=== PATIENT | female | born 1985 | race Caucasian/White ===

== ENCOUNTER → 2017-12-04 | Day surgery (SDC) | payer MEDICAID ==
[2017-12-02 15:05] VITALS: BMI 22.7
[~2017-12-04] MED LIST: LACTATED RINGERS 1,000 ML IV ONE; LACTATED RINGERS 1,000 ML IV SCH; LIDOCAINE 1% 20 ML VIAL (10MG/ML) FOR IV START INTRADERMA ONE; LIDOCAINE 1% INJ 10MG/ML (20 ML MDV) ONE; MIDAZOLAM 2 MG/2 ML VIAL ONE; PROPOFOL 10 MG/ML 20 ML VIAL IV ONE; fentaNYL (PF) 50 MCG/ML 2 ML AMP ONE
[2017-12-04 08:44] VITALS: TEMP 97.9
--- NOTE | 2017-12-04 10:07 | P.PCN ---
Date of Procedure: 12/04/17 Procedure(s) Performed: Procedures: 1. Esophagogastroduodenoscopy and biopsy. 2. Colonoscopy and biopsy. Preoperative diagnosis: Epigastric pain and change in bowel habits. Postoperative diagnosis: 1. Mild antral gastritis. 2. Normal colon and terminal ileum. 3. Biopsies obtained from the duodenum, antrum, esophagus, terminal ileum and randomly from the colon. Preparation: HalfLytely prep. Sedation: Was provided by anesthesia. Brief clinical history: The patient is a 32-year-old female who I have evaluated in the office last month for upper abdominal pains and intermittent diarrhea which has been consistent for the last 2 months. There is family history of colitis in her mother and of irritable bowel syndrome and Crohn's disease on her mother's side of the family. Procedure: With the patient on her left lateral decubitus position and after informed consent and adequate sedation, I passed the Olympus-GIF 160 video upper endoscope through the cricopharyngeus down the esophagus. GE junction was around 39 cm from the incisors and there was no definite hiatal hernia. The esophagus did not show any obvious esophagitis or complicated reflux disease. The endoscope was then passed into the stomach which was insufflated with air and inspected in detail including the retroflex view in the cardia. There was some mottling and erythema in the antrum consistent with mild gastritis but no ulcers or erosions. Pyloric channel, duodenal bulb, post bulbar area and descending duodenum appeared within normal limits. I obtained biopsies from the duodenum, antrum and esophagus then the endoscope was withdrawn and I proceeded with the colonoscopy. Perianal area did not show any fissures or fistulas. There were no masses felt on digital rectal examination. The Olympus CFQ 160L video colonoscope was then inserted in the rectum in the usual fashion and advanced to the cecum. I intubated the ileocecal valve and examined the terminal ileum. Terminal ileum and colon appeared healthy with no edema, erythema, friability, ulceration, exudation or spontaneous bleeding. No polyps or tumors were seen or any obvious diverticular disease or other pathology. I retroflexed the endoscope in the rectum before the endoscope was withdrawn, and I also obtained biopsies from the terminal ileum and randomly from the colon. The patient tolerated the procedure well. Plan: The patient was reassured. Will await biopsy results and make further plans based on her course and biopsy results. She will follow-up with you as planned and I will keep you updated on her progress.
[2017-12-04 10:20] VITALS: BP 134/63; PULSE 70; RESP 18
== END ==
LOC: ORWHC2ENDO 08:01
DX: K29.50 Unspecified chronic gastritis without bleeding (principal); K20.0 Eosinophilic esophagitis; K52.9 Noninfective gastroenteritis and colitis, unspecified; Z83.79 Family history of other diseases of the digestive system; J45.909 Unspecified asthma, uncomplicated; Z72.0 Tobacco use; K21.9 Gastro-esophageal reflux disease without esophagitis; Z79.51 Long term (current) use of inhaled steroids; Z79.899 Other long term (current) drug therapy; Z91.02 Food additives allergy status; Z91.018 Allergy to other foods
CPT/HCPCS: 81025; 88305; 45380; 43239; J2250; J2001; J3010; J2704

== ENCOUNTER → 2018-03-09 | Outpatient (CLI) | payer MEDICAID ==
--- NOTE | 2018-03-09 12:24 | XR ---
EXAMINATION TYPE: XR shoulder complete RT DATE OF EXAM: 03/09/2018 COMPARISON: NONE HISTORY: Pain TECHNIQUE: Three views are submitted. FINDINGS: The osseous structures are intact. There is no acute fracture or dislocation. The AC joint is maint ained. IMPRESSION: 1. No acute process.
== END | disposition home or self-care (01) ==
LOC: RADXRMAIN 11:35
PROVIDERS: ATTEND Nurse Practitioner Family
DX: M25.511 Pain in right shoulder (principal)

== ENCOUNTER 2020-06-04 13:29 | Emergency (ER) | payer MEDICAID, OTHER ==
--- NOTE | 2020-06-04 14:11 | ED ---
Wound/Laceration HPI - General Chief Complaint: Wound/Laceration Stated Complaint: [facility]- R hand injury Time Seen by Provider: 06/04/20 14:00 Source: patient, RN notes reviewed Mode of arrival: ambulatory Limitations: no limitations - History of Present Illness Initial Comments: Patient is a 35-year-old female presents to emergency department with a right tip of thumb laceration. She noted that she got her thumb caught between a palate and some decking material. She'll he wanted to come the emergency Department if she needed stitches. The wound margins approximate well as more of a skin flap. She does have full sensation range of motion. She denied any weakness numbness tingling. She denied any nausea vomiting diarrhea constipation fever fatigue chills. - Related Data Home Medications Medication Instructions Recorded Confirmed Fluticasone/Salmeterol [Advair 1 each IH HS 04/14/15 12/04/17 250-50 Diskus] Albuterol Sulfate [Proair 1 puff INHALATION DIRECTED PRN 12/02/17 12/04/17 Respiclick] Allergies Allergy/AdvReac Type Severity Reaction Status Date / Time gluten Allergy Nausea & Verified 06/04/20 13:35 Vomiting soy Allergy Unknown Verified 06/04/20 13:35 tree nut Allergy Anaphylaxis Verified 06/04/20 13:35 Review of Systems ROS Statement: Those systems with pertinent positive or pertinent negative responses have been documented in the HPI. ROS Other: All systems not noted in ROS Statement are negative. Past Medical History Past Medical History: Asthma, GERD/Reflux Additional Past Medical History / Comment(s): HEART MURMUR, CURRENTLY HAS POISON EBONI BUT IT IS DRYING UP., HX OF GI BLEEDING 10 YRS AGO-UNKNOWN CAUSE., STATES CURRENTLY HAVING STOMACH PAINS. History of Any Multi-Drug Resistant Organisms: None Reported Past Surgical History: No Surgical Hx Reported Additional Past Surgical History / Comment(s): WISDOM TEETH ONLY. Past Anesthesia/Blood Transfusion Reactions: Motion Sickness Past Psychological History: Anxiety Smoking Status: Current every day smoker Past Alcohol Use History: Occasional Past Drug Use History: None Reported - Past Family History Mother Family Medical History: No Reported History General Exam Limitations: no limitations General appearance: alert, in no apparent distress Head exam: Present: atraumatic, normocephalic, normal inspection Eye exam: Present: normal appearance, PERRL, EOMI. Absent: scleral icterus, conjunctival injection, periorbital swelling ENT exam: Present: normal exam, mucous membranes moist Neck exam: Present: normal inspection. Absent: tenderness, meningismus, lymphadenopathy Respiratory exam: Present: normal lung sounds bilaterally. Absent: respiratory distress, wheezes, rales, rhonchi, stridor Cardiovascular Exam: Present: regular rate, normal rhythm, normal heart sounds. Absent: systolic murmur, diastolic murmur, rubs, gallop, clicks GI/Abdominal exam: Present: soft, normal bowel sounds. Absent: distended, tenderness, guarding, rebound, rigid Extremities exam: Present: normal inspection, full ROM, normal capillary refill. Absent: tenderness, pedal edema, joint swelling, calf tenderness Neurological exam: Present: alert, oriented X3, CN II-XII intact Psychiatric exam: Present: normal affect, normal mood Skin exam: Present: warm, dry, intact, normal color, other (Small 1-1.5 cm laceration to the tip of the right thumb on the medial aspect near the nail.). Absent: rash Course Vital Signs 06/04/20 13:31 Temperature 97.6 F Pulse Rate 98 Respiratory 18 Rate Blood Pressure 144/93 O2 Sat by Pulse 99 Oximetry Procedures - Laceration Laceration #1 Consent Obtained: verbal consent Indication: laceration Site: hand (Right thumb) Description: flap Depth: simple, single layer Type of Sutures: other (Dermabond) Size of Sutures: other (Dermabond) Technique: other (Dermabond) Patient Tolerated Procedure: well, no complications Medical Decision Making - Medical Decision Making 35-year-old female with small laceration to right thumb X-ray of right hand fingers ordered. patient declined need for any pain medication Case discussed with Dr. Lindo, patient can discharge home with conservative management. - Radiology Data Radiology results: report reviewed, image reviewed Right thumb x-ray: Negative rate on exam. Disposition Clinical Impression: Laceration of right thumb Disposition: HOME SELF-CARE Condition: Stable Instructions (If sedation given, give patient instructions): Laceration (ED) Additional Instructions: Please return to the Emergency Department if symptoms worsen or any other concerns. Keep thumb dry for 48-72 hours. Follow-up with primary care in 2-5 days. Use [id number] pain medications as percent on a control. Is patient prescribed a controlled substance at d/c from ED?: No Referrals: Indra Apple MD [Primary Care Provider] - 1-2 days Time of Disposition: 15:01
[2020-06-04] MEDS ORDERED: TOPICAL SKIN ADHESIVE 1 EACH AMP TOPICAL ONE (14:31)
--- NOTE | 2020-06-04 14:43 | XR ---
EXAMINATION TYPE: XR finger RT DATE OF EXAM: 06/04/2020 COMPARISON: NONE HISTORY: Thumb injury Pain TECHNIQUE: 3 views FINDINGS: I see no fracture nor dislocation. Joint spaces appear normal. Soft tissues appear normal. IMPRESSION: Negative right thumb exam.
[2020-06-04] MEDS ORDERED: DIPH,PERTUS(ACELL)TETVAC-LF 0.5 ML VIAL IM ONE (15:09)
--- NOTE | 2020-06-04 15:11 | ED ---
Medical Decision Making - Medical Decision Making 35-year-old female with thumb laceration. Tetanus immunization updated. Case discussed with Dr. Lindo Disposition Clinical Impression: Laceration of right thumb Disposition: HOME SELF-CARE Condition: Stable Instructions (If sedation given, give patient instructions): Laceration (ED) Additional Instructions: Please return to the Emergency Department if symptoms worsen or any other concerns. Keep thumb dry for 48-72 hours. Follow-up with primary care in 2-5 days. Use [id number] pain medications as percent on a control. Is patient prescribed a controlled substance at d/c from ED?: No Referrals: Indra Apple MD [Primary Care Provider] - 1-2 days
[2020-06-04 15:23] VITALS: BP 128/78; PULSE 78; RESP 16; TEMP 98
== END 2020-06-04 15:22 | disposition home or self-care (01) ==
LOC: EC 13:29
DX: S61.011A Laceration without foreign body of right thumb without damage to nail, initial encounter (principal); J45.909 Unspecified asthma, uncomplicated; Z79.52 Long term (current) use of systemic steroids; F17.200 Nicotine dependence, unspecified, uncomplicated; Z23 Encounter for immunization; Z91.018 Allergy to other foods; W23.0XXA Caught, crushed, jammed, or pinched between moving objects, initial encounter
CPT/HCPCS: 12001; 90471; 90715; 99283

== ENCOUNTER → 2020-12-06 | Outpatient (CLI) | payer MEDICAID ==
--- NOTE | 2020-12-06 15:42 | US ---
EXAMINATION TYPE: US OB >= 14 wk fetus DATE OF EXAM: 12/06/2020 COMPARISON: None CLINICAL HISTORY: Z36 Confirm dates Confirm dates. G1. TECHNIQUE: Transabdominal (TA) GESTATIONAL AGE / DATING Physician Established: Not yet established. Dates by LMP: Unknown per patient. Dates by First Scan: This is first scan. Dates by Current Scan: (16 weeks/3 days) EDC: 05/20/2021 SURVEY IUP: Single PLACENTA: Anterior PREVIA: No Previa seen. MARK ANTHONY: 9.8 cm Slightly low for hospital standards. CERVICAL LENGTH (transabdominal: norm > 3.0cm): 3.17 cm BIOMETRY PRESENTATION: Vertex LIE: Longitudinal BPD: 3.3 cm 16 weeks / 2 days HC: 12.9 cm 16 weeks / 4 days AC: 10.5 cm 16 weeks / 4 days FL: 2.1 cm 16 weeks / 2 days ESTIMATED WEIGHT IN GRAMS: 154 grams ESTIMATED WEIGHT IN LBS/OZ: 0 lbs. 5 oz. WEIGHT PERCENTAGE BASED ON ESTABLISHED DATES: % HC/AC: 1.23 FL/AC: 20% HEART RATE: 149 bpm RHYTHM: Normal IMPRESSION: 1. Single intrauterine gestation estimated at 16 weeks 3 days gestation based on current ultrasound m easurements. Cardiac activity measures 149 bpm. 2. Amniotic fluid index is 9.8 cm. Consideration for oligohydramnios is recommended.
[2020-12-06 16:02] LABS: HCT 34.7 % (34.0-46.0); HGB 12.2 gm/dL (11.4-16.0); MCH 33.2 pg (25.0-35.0); MCV 94.7 fL (80.0-100.0); Mean Platelet Volume 7.3; Platelet Count 252 k/uL (150-450); RBC 3.67 m/uL (3.80-5.40); RDW 12.3 % (11.5-15.5)
[2020-12-06 16:16] LABS: African American GFR (CKD) >90 (>60 ml/min/1.73 sqM); Glucose 95 mg/dL (74-99); Non-African American GFR(CKD) >90 (>60 ml/min/1.73 sqM)
[2020-12-07 21:13] LABS: Hepatitis B Surface Antigen Non-Reactive (Non-Reactive)
== END | disposition home or self-care (01) ==
LOC: RADUSWWP 14:16
PROVIDERS: ATTEND Obstetrics & Gynecology
DX: Z36.89 Encounter for other specified antenatal screening (principal); Z3A.16 16 weeks gestation of pregnancy
CPT/HCPCS: 76805; 82565; 82947; 85027; 86762; 86780; 86850; 86900; 86901; 87340

== ENCOUNTER → 2020-12-27 | Outpatient (CLI) | payer MEDICAID ==
--- NOTE | 2020-12-28 09:31 | US ---
EXAMINATION TYPE: US OB anatomy transabd DATE OF EXAM: 12/27/2020 COMPARISON: 12/06/2020 HISTORY: 35-year-old female O36.62X0 LARGE FOR DATES Large for dates, anatomy. . TECHNIQUE: Transabdominal (TA) FINDINGS: EXAM MEASUREMENTS: GESTATIONAL AGE / DATING Physician Established: (19 weeks/3 days) EDC: 05/20/2021 Dates by LMP: Unknown. Dates by First Scan: (19 weeks/3 days) EDC: 05/20/2021 Dates by Current Scan for: (18 weeks/5 days) EDC: SURVEY IUP: Single PLACENTA: Anterior PREVIA: No previa (the inferior placental margin measures 3.1 cm from the internal cervical os) MARK ANTHONY: 11.7 cm Normal CERVICAL LENGTH (transabdominal: norm > 3.0cm): 3.3 cm BIOMETRY PRESENTATION: Variable LIE: Transverse lie with head maternal L BPD: 3.82 cm 17 weeks / 5 days HC: 16.11 cm 18 weeks / 6 days AC: 13.92 cm 19 weeks / 2 days FL: 3.00 cm 19 weeks / 2 days ESTIMATED WEIGHT IN GRAMS: 279.72 grams ESTIMATED WEIGHT IN LBS/OZ: 0 lbs. 10 oz. WEIGHT PERCENTAGE BASED ON ESTABLISHED DATE: 32.8 % HC/AC: 1.16 Normal FL/AC: 21.58 HEART RATE: 149 bpm RHYTHM: Normal ANATOMY SEEN (within normal limits): Lateral Vent (< 1 cm) 0.6 cm Cisterna Magna (< 1.1 cm) 0.43 cm Nuchal Fold (< 0.6 cm) 0.42 cm Cerebellum (varies with age) 1.82 cm Choroid Plexus (bilateral) Midline Falx Stomach Situs Diaphragm Kidneys (bilateral) Bladder Cord Insert Three Vessel Cord Arms (bilateral) Legs (bilateral) ANATOMY NOT SEEN (Limitations due to position, spine up): Cavus Septi Pellucidi Four chamber heart Outflow tracts Nose / Lips Longitudinal Spine (skin line not delineated adequately) Transverse Spine (skin line not delineated adequately) *Patient scheduled to return January 05 to complete imaging unable to be obtained today. IMPRESSION: 1. Single live intrauterine with a established gestational age of 19 weeks 3 days by prior dating scan. Current ultrasound biometry is slightly smaller at 18 weeks 5 days placing the child at the 33rd percentile for weight. 2. Multiple structures on the survey could not be adequately visualized due to position. The patient is scheduled for a rescan on 01/05/2021. The remaining visualized structures appear michelle l.
== END | disposition home or self-care (01) ==
LOC: RADUSWWP 15:02
PROVIDERS: ATTEND Obstetrics & Gynecology
DX: O36.62X0 Maternal care for excessive fetal growth, second trimester, not applicable or unspecified (principal); Z3A.19 19 weeks gestation of pregnancy
CPT/HCPCS: 76811

== ENCOUNTER → 2021-02-06 | Outpatient (CLI) | payer MEDICAID ==
--- NOTE | 2021-02-07 08:29 | US ---
EXAMINATION TYPE: US OB Call Back DATE OF EXAM: 02/06/2021 COMPARISON: correlation ultrasound 12/27/2020 CLINICAL HISTORY: 35-year-old female Complete imaging. Call back GESTATIONAL AGE / DATING Dates by Initial Survey Scan: (18 weeks/5 days) EDC: 05/25/2021 HEART RATE: 149 bpm RHYTHM: Normal ANATOMY SEEN (second anatomic survey look): Cavus Septi Pellucidi: wnl Four Chamber Heart: wnl Nose / Lips: wnl Outflow tracts:? RVOT- wnl ANATOMY SEEN BUT SUBOPTIMAL Longitudinal Spine: (skin line contacts adjacent soft tissues. Some protuberance along the cervical skin line. A structure suspected to represent the cord drapes along the posterior neck). Transverse Spine: wnl ANATOMY SUBOPTIMALLY VISUALIZED Outflow tracts:? LVOT IMPRESSION: 1. CSP, four-chamber heart, RVOT, and nose/lips are visualized and appear within normal limits. 2. The LVOT remains suboptimally visualized. Rescan can be performed. 3. Longitudinal spine can be reassessed at the rescan. At that time, nuchal cord or shawl should be e xcluded.
== END | disposition home or self-care (01) ==
LOC: RADUSWWP 15:35
PROVIDERS: ATTEND Obstetrics & Gynecology
DX: Z53.9 Procedure and treatment not carried out, unspecified reason (principal)

== ENCOUNTER → 2021-02-06 | Outpatient (CLI) | payer MEDICAID ==
[2021-02-06 18:50] LABS: HCT 32.8 % (37.2-46.3); HGB 10.5 g/dL (12.0-15.0); Mean Platelet Volume 10.9 fL (9.5-12.2); Platelet Count 264 X 10*3/uL (140-440); RBC 3.28 X 10*6/uL (4.10-5.20); RDW 13.7 % (11.5-14.5); WBC 14.25 X 10*3/uL (4.50-10.00)
== END | disposition home or self-care (01) ==
LOC: LABWHC1 12:08
PROVIDERS: ATTEND Obstetrics & Gynecology
DX: Z34.02 Encounter for supervision of normal first pregnancy, second trimester (principal)
CPT/HCPCS: 36415; 82950; 85027

== ENCOUNTER 2021-02-14 19:18 | Emergency (ER) | payer MEDICAID ==
[2021-02-14] MEDS ORDERED: SODIUM CHLORIDE 0.9% 50 ML IVPB ONE (20:15)
[2021-02-14] MEDS ORDERED: BAMLANIVIMAB (EUA) 700 MG, ETESEVIMAB (EUA) 1,400 MG in SODIUM CHLORIDE 0.9% 50 ML IVPB ONE (20:15)
--- NOTE | 2021-02-14 20:50 | ED ---
URI HPI - General Chief Complaint: Upper Respiratory Infection Stated Complaint: COVID+,,wants BAM Time Seen by Provider: 02/14/21 19:46 Source: patient, RN notes reviewed Mode of arrival: ambulatory Limitations: no limitations - History of Present Illness Initial Comments: Patient is a 35-year-old female that presents to the emergency department Covid- positive as of today with symptoms for the past 23 days. She also notes that she is approximately 26 weeks . Patient was sent from urgent care to here for workup. Patient was otherwise well-appearing. She denied any fevers. She denied any chest pain first breath headache nausea vomiting diarrhea constipation fever fatigue chills. - Related Data Home Medications Medication Instructions Recorded Confirmed Fluticasone/Salmeterol [Advair 1 each IH HS 04/14/15 12/04/17 250-50 Diskus] Albuterol Sulfate [Proair 1 puff INHALATION DIRECTED PRN 12/02/17 12/04/17 Respiclick] Allergies Allergy/AdvReac Type Severity Reaction Status Date / Time gluten Allergy Nausea & Verified 02/14/21 19:26 Vomiting soy Allergy Unknown Verified 02/14/21 19:26 tree nut Allergy Anaphylaxis Verified 02/14/21 19:26 Review of Systems ROS Statement: Those systems with pertinent positive or pertinent negative responses have been documented in the HPI. ROS Other: All systems not noted in ROS Statement are negative. Past Medical History Past Medical History: Asthma, GERD/Reflux Additional Past Medical History / Comment(s): HEART MURMUR, CURRENTLY HAS POISON EBONI BUT IT IS DRYING UP., HX OF GI BLEEDING 10 YRS AGO-UNKNOWN CAUSE., STATES CURRENTLY HAVING STOMACH PAINS. History of Any Multi-Drug Resistant Organisms: None Reported Past Surgical History: No Surgical Hx Reported Additional Past Surgical History / Comment(s): WISDOM TEETH ONLY. Past Anesthesia/Blood Transfusion Reactions: Motion Sickness Past Psychological History: Anxiety Smoking Status: Current every day smoker Past Alcohol Use History: Occasional Past Drug Use History: None Reported - Past Family History Mother Family Medical History: No Reported History General Exam Limitations: no limitations General appearance: alert, in no apparent distress Head exam: Present: atraumatic, normocephalic, normal inspection Eye exam: Present: normal appearance, PERRL, EOMI. Absent: scleral icterus, conjunctival injection, periorbital swelling ENT exam: Present: normal exam, mucous membranes moist Neck exam: Present: normal inspection. Absent: tenderness, meningismus, lymphadenopathy Respiratory exam: Present: normal lung sounds bilaterally. Absent: respiratory distress, wheezes, rales, rhonchi, stridor Cardiovascular Exam: Present: regular rate, normal rhythm, normal heart sounds. Absent: systolic murmur, diastolic murmur, rubs, gallop, clicks Extremities exam: Present: normal inspection, full ROM, normal capillary refill. Absent: tenderness, pedal edema, joint swelling, calf tenderness Neurological exam: Present: alert, oriented X3 Psychiatric exam: Present: normal affect, normal mood Skin exam: Present: warm, dry, intact, normal color. Absent: rash Course Vital Signs 02/14/21 19:21 Temperature 97.7 F Pulse Rate 113 H Respiratory 22 Rate Blood Pressure 130/72 O2 Sat by Pulse 100 Oximetry Medical Decision Making - Medical Decision Making 35-year-old female 26 weeks Covid-positive as of today with symptoms for the past 2 days. Patient does meet criteria for monoclonal antibodies and wishes to undergo infusion. Vision is agreeable with discharge home after infusion. Case discussed with Dr. Leahy, patient discharge home. Disposition Clinical Impression: COVID Disposition: HOME SELF-CARE Condition: Stable Instructions (If sedation given, give patient instructions): Coronavirus Disease 2019 (COVID-19) Additional Instructions: Please return to the Emergency Department if symptoms worsen or any other concerns. Is patient prescribed a controlled substance at d/c from ED?: No Referrals: Indra Apple MD [Primary Care Provider] - 1-2 days Time of Disposition: 20:49
[2021-02-14 22:31] VITALS: BP 136/71; PULSE 100; RESP 20; TEMP 97
== END 2021-02-14 22:31 | disposition home or self-care (01) ==
LOC: EC 19:18
DX: O98.512 Other viral diseases complicating pregnancy, second trimester (principal); U07.1 COVID-19; K21.9 Gastro-esophageal reflux disease without esophagitis; J45.909 Unspecified asthma, uncomplicated; F41.9 Anxiety disorder, unspecified; F17.200 Nicotine dependence, unspecified, uncomplicated; Z3A.26 26 weeks gestation of pregnancy
CPT/HCPCS: 99283; 96365; 96361; J3490

== ENCOUNTER → 2021-03-19 | Outpatient (CLI) | payer MEDICAID ==
--- NOTE | 2021-03-19 13:33 | US ---
EXAMINATION TYPE: US OB >= 14 wk fetus DATE OF EXAM: 03/19/2021 COMPARISON: None CLINICAL HISTORY: O36.5930 Maternal care for other known or suspected poor fet TECHNIQUE: Transabdominal (TA) GESTATIONAL AGE / DATING Physician Established: (31 weeks/1 days) EDC: 05/20/2021 Dates by First Scan: (31 weeks/1 days) EDC: 05/20/2021 Dates by Current Scan: (31 weeks/4 days) EDC: 05/17/2021 SURVEY IUP: Single PLACENTA: Anterior PREVIA: No Previa MARK ANTHONY: 17.47 cm Normal CERVICAL LENGTH (transabdominal: norm > 3.0cm): 3.0cm BIOMETRY PRESENTATION: Vertex LIE: Longitudinal BPD: 7.68 cm 30 weeks / 6 days HC: 29.0 cm 32 weeks / 0 days AC: 27.27 cm 31 weeks / 3 days FL: 6.11 cm 31 weeks / 6 days ESTIMATED WEIGHT IN GRAMS: 1175 grams ESTIMATED WEIGHT IN LBS/OZ: 3 lbs. 5 oz. WEIGHT PERCENTAGE BASED ON ESTABLISHED DATES: 49% HC/AC: 1.1 Normal FL/AC: 22 Normal HEART RATE: 143 bpm RHYTHM: Normal Growth according to dates, Out flow track imaged as requested from prior scan IMPRESSION: Single viable intrauterine as noted above.
== END | disposition home or self-care (01) ==
LOC: RADUSWWP 10:52
PROVIDERS: ATTEND Obstetrics & Gynecology
DX: O36.5930 Maternal care for other known or suspected poor fetal growth, third trimester, not applicable or unspecified (principal); Z3A.31 31 weeks gestation of pregnancy
CPT/HCPCS: 76805

== ENCOUNTER 2021-04-14 17:47 | Outpatient (CLI) | payer MEDICAID ==
[2021-04-14 18:33] VITALS: BP 132/69; PULSE 94; RESP 18; TEMP 97.8
== END 2021-04-14 18:20 | disposition home or self-care (01) ==
LOC: FBPOP 17:47
PROVIDERS: ATTEND Obstetrics & Gynecology
DX: O09.513 Supervision of elderly primigravida, third trimester (principal); O99.333 Smoking (tobacco) complicating pregnancy, third trimester; F17.200 Nicotine dependence, unspecified, uncomplicated; Z3A.34 34 weeks gestation of pregnancy; Z91.018 Allergy to other foods
CPT/HCPCS: 59025

== ENCOUNTER 2021-04-19 14:35 | Outpatient (CLI) | payer MEDICAID | END 2021-04-19 15:01 | disposition home or self-care (01) | LOC: FBPOP 14:35 | PROVIDERS: ATTEND Obstetrics & Gynecology | DX: O09.519 Supervision of elderly primigravida, unspecified trimester (principal); O99.330 Smoking (tobacco) complicating pregnancy, unspecified trimester; F17.200 Nicotine dependence, unspecified, uncomplicated; Z3A.00 Weeks of gestation of pregnancy not specified; Z91.018 Allergy to other foods | CPT/HCPCS: 59025 ==

== ENCOUNTER 2021-04-26 15:00 | Outpatient (CLI) | payer MEDICAID ==
[2021-04-26 15:28] VITALS: BP 134/66; PULSE 75; RESP 18; TEMP 97.3
--- NOTE | 2021-04-27 06:21 | P.MSEPDOC ---
Presenting Problems - Arrival Data Date of Arrival on Unit: 04/26/21 Time of Arrival on Unit: 15:00 Mode of Transport: Ambulatory - Complaint OB-Reason for Admission/Chief Complaint: NST Medical History - Information : 1 Para: 0 Term: 0 : 0 Abortions: Spontaneous or Elective: 0 Number of Living Children: 0 - Gestational Age Gestational Age by JESSICA (wks/days): 36 Weeks and 4 Days Review of Systems - Review of Systems Constitutional: No problems Breast: No problems ENT: No problems Cardiovascular: No problems Respiratory: No problems Gastrointestinal: No problems Genitourinary: No problems Musculoskeletal: No problems Neurological: No problems Skin: No problems Vital Signs - Temperature Temperature: 97.3 F Temperature Source: Oral - Pulse Right Sitting Brachial Pulse Rate: 75 Pulse Assessment Method: Automatic Cuff - Respirations Respiratory Rate: 18 Oxygen Delivery Method: Room Air O2 Sat by Pulse Oximetry: 98 - Blood Pressure Right Arm Sitting Blood Pressure: 134/66 Blood Pressure Mean: 88 Blood Pressure Source: Automatic Cuff Medical Screen Scoring - Assessment - Baby A Baseline FHR: 130 Heart Rate - NICHD Category: Category I (Normal) NST: Reactive Physician Notification - Physician Notified Physician Notified Date: 04/26/21 Physician Notified Time: 15:30 Physician: Umer Ordoñez New Order Received: Yes - Notification Comment Comment: weekly NST for maternal age, reactive. Follow up in the office in one week as schedule. Maternal Triage Index - Maternal Triage Index Presenting for scheduled procedure w/no complaint: Yes - Scheduled/Requesting Priority 5 Scheduled/Requesting Priority 5: No Disposition - Disposition OB Disposition: Discharge to home Discharge Date: 04/26/21 Discharge Time: 15:30 I agree with the RN Medical Screening Exam: Yes Case reviewed; plan agreed upon as documented in EMR&OBIX.: Yes Diagnosis: RELATED CONDITIONS, UNSPECIFIED, THIRD TRIMESTER
== END 2021-04-26 15:30 | disposition home or self-care (01) ==
LOC: FBPOP 15:00
PROVIDERS: ATTEND Obstetrics & Gynecology
DX: O09.513 Supervision of elderly primigravida, third trimester (principal); O99.333 Smoking (tobacco) complicating pregnancy, third trimester; F17.200 Nicotine dependence, unspecified, uncomplicated; Z3A.36 36 weeks gestation of pregnancy; Z91.018 Allergy to other foods
CPT/HCPCS: 59025

== ENCOUNTER 2021-05-03 14:02 | Outpatient (CLI) | payer BC, MEDICAID ==
[2021-05-03 14:21] VITALS: BP 134/78; PULSE 104; RESP 16; TEMP 96.6
--- NOTE | 2021-05-04 07:18 | P.MSEPDOC ---
Presenting Problems - Arrival Data Date of Arrival on Unit: 05/03/21 Time of Arrival on Unit: 14:02 Mode of Transport: Ambulatory - Complaint OB-Reason for Admission/Chief Complaint: NST Comment: written order for weekly nst Medical History - Information : 1 Para: 0 Term: 0 : 0 Abortions: Spontaneous or Elective: 0 Number of Living Children: 0 - Gestational Age Gestational Age by JESSICA (wks/days): 37 Weeks and 4 Days - History Complications: Other Comment: elderly primigravida Review of Systems - Review of Systems Constitutional: No problems Breast: No problems ENT: No problems Cardiovascular: No problems Respiratory: No problems Gastrointestinal: No problems Genitourinary: No problems Musculoskeletal: No problems Neurological: No problems Skin: No problems Vital Signs - Temperature Temperature: 96.6 F Temperature Source: Temporal Artery Scan - Pulse Right Sitting Pulse Rate: 104 Pulse Assessment Method: Automatic Cuff - Respirations Respiratory Rate: 16 Oxygen Delivery Method: Room Air O2 Sat by Pulse Oximetry: 97 - Blood Pressure Right Arm Blood Pressure: 134/78 Blood Pressure Mean: 96 Blood Pressure Source: Automatic Cuff Medical Screen Scoring - Assessment - Baby A Baseline FHR: 125 Heart Rate - NICHD Category: Category I (Normal) NST: Reactive Physician Notification - Physician Notified Physician Notified Date: 05/03/21 Physician Notified Time: 14:33 Physician: Umer Ordoñez Order Received: Yes (d/c home) Maternal Triage Index - Maternal Triage Index Presenting for scheduled procedure w/no complaint: Yes - Scheduled/Requesting Priority 5 Scheduled/Requesting Priority 5: Yes Criteria Met for Priority 5: weekly nst Disposition - Disposition OB Disposition: Discharge to home Discharge Date: 05/03/21 Discharge Time: 14:37 I agree with the RN Medical Screening Exam: Yes Case reviewed; plan agreed upon as documented in EMR&OBIX.: Yes Diagnosis: RELATED CONDITIONS, UNSPECIFIED, THIRD TRIMESTER
== END 2021-05-03 14:37 | disposition home or self-care (01) ==
LOC: FBPOP 14:02
PROVIDERS: ATTEND Obstetrics & Gynecology
DX: O26.93 Pregnancy related conditions, unspecified, third trimester (principal); O09.513 Supervision of elderly primigravida, third trimester; Z3A.37 37 weeks gestation of pregnancy; Z91.018 Allergy to other foods
CPT/HCPCS: 59025

== ENCOUNTER 2021-05-15 05:40 | Inpatient (IN) | payer BC, MEDICAID ==
--- NOTE | 2021-05-14 07:24 | P.HPOB ---
History of Present Illness H&P Date: 05/14/21 Chief Complaint: Requested induction of labor This patient is a pleasant 36-year-old 1 para 0 female estimated date of confinement 05/20/2021 estimated gestational age 39-2/7 weeks who presents to labor and delivery for requested induction of labor. Patient's care has been complicated by late to seek care and by advanced maternal age. Patient initially saw me she was most likely around 14 weeks with an unknown EDC. She was not prevented but not planned. I did discuss her age and increased risk of genetic abnormalities and she did not request maternal medicine referral. She also did not want any genetic testing. She did develop coven during the as well. care has otherwise been uncomplicated. She's had normal growth ultrasounds and antepartum testing. Review of Systems Genitourinary: Reports Menstruation: Reports amenorrhea Past Medical History Past Medical History: Asthma, GERD/Reflux History of Any Multi-Drug Resistant Organisms: None Reported Past Surgical History: No Surgical Hx Reported Additional Past Surgical History / Comment(s): WISDOM TEETH ONLY. Past Anesthesia/Blood Transfusion Reactions: Motion Sickness Past Psychological History: No Psychological Hx Reported Smoking Status: Never smoker Past Alcohol Use History: None Reported Past Drug Use History: None Reported - Past Family History Mother Family Medical History: No Reported History Medications and Allergies Home Medications Medication Instructions Recorded Confirmed Type Fluticasone/Salmeterol [Advair 1 inhalation PO BID 03/30/21 04/26/21 History 250-50 Diskus] Pnv No.95/Ferrous Fum/Folic AC 1 each PO DAILY 03/30/21 04/26/21 History [ Multivitamin Tablet] Allergies Allergy/AdvReac Type Severity Reaction Status Date / Time gluten Allergy Nausea & Verified 05/03/21 14:07 Vomiting soy Allergy Unknown Verified 05/03/21 14:07 tree nut Allergy Anaphylaxis Verified 05/03/21 14:07 Exam - OBG Physical Exam Abdomen: bowel sounds normal, no diffuse tenderness, no bruit present, no guarding noted, no hepatomegaly, no splenomegaly, no mass Vulva: both: normal Vagina: normal moisture, no discharge Cervix: no lesion, no discharge Uterus: enlarged, normal contour Results blood work shows she is B+, rubella immune, RPR nonreactive, hepatitis B negative, Glucola was normal, group B strep was negative, anatomy ultrasounds have been normal, most recent ultrasound approximately 2.5 weeks ago showed 7 lbs. 3 oz. Assessment and Plan Assessment: This is a pleasant 36-year-old 1 para 0 female 39-2/7 weeks gestation admitted to labor and delivery for requested induction of labor. Plan is induction of labor and anticipate vaginal delivery. (1) 39 weeks gestation of Status: Acute Code(s): Z3A.39 - 39 WEEKS GESTATION OF SNOMED Code(s): 78631206 (2) Elderly primigravida Status: Acute Code(s): O09.519 - SUPERVISION OF ELDERLY PRIMIGRAVIDA, UNSPECIFIED TRIMESTER SNOMED Code(s): 85884469 (3) Elective induction of labor planned Status: Acute Code(s): MGR0841 - SNOMED Code(s): 975094473
[2021-05-15] MEDS ORDERED: TERBUTALINE 1 MG/ML VIAL SQ PRN (06:02)
[2021-05-15] MEDS ORDERED: OXYTOCIN 30 UNITS/500 ML NS 30 UNIT in SALINE 1 500ML.BAG IV SCH ×2 (06:02→19:30)
[2021-05-15] MEDS ORDERED: LIDOCAINE 1% (PF) 10 MG/ML (30 ML SDV) SQ PRN (06:02)
[2021-05-15] MEDS ORDERED: OXYTOCIN 10 UNIT/ML 1 ML VIAL IM PRN (06:02)
[2021-05-15] MEDS ORDERED: CARBOPROST TROMETHAMINE 250 MCG/ML 1 ML AMP IM PRN (06:02)
[2021-05-15] MEDS ORDERED: METHYLERGONOVINE 0.2 MG/ML 1 ML AMP IM PRN (06:02)
[2021-05-15] MEDS: LACTATED RINGERS 1,000 ML IV SCH ×2 (06:11→07:48)
[2021-05-15 06:24] LABS: Basophils % (A) 0 %; Eosinophils # (A) 0.2 k/uL (0-0.7); Eosinophils % (A) 2 %; HGB 12.2 gm/dL (11.4-16.0); Lymphocytes # (A) 1.5 k/uL (1.0-4.8); Lymphocytes % (A) 13 %; MCH 34.1 pg (25.0-35.0); MCHC 34.8 g/dL (31.0-37.0); MCV 97.9 fL (80.0-100.0); Mean Platelet Volume 9.6; Monocytes # (A) 0.7 k/uL (0-1.0); Monocytes % (A) 6 %; Neutrophils # (A) 8.9 k/uL (1.3-7.7); Neutrophils % (A) 78 %; Platelet Count 209 k/uL (150-450); RBC 3.58 m/uL (3.80-5.40); RDW 14.1 % (11.5-15.5); WBC 11.4 k/uL (3.8-10.6)
[2021-05-15] MEDS ORDERED: SODIUM CHLORIDE 0.9% 100 ML BAG ONE (08:33)
[2021-05-15] MEDS ORDERED: ROPIVACAINE 5MG/ML 20ML VIAL ONE (08:33)
[2021-05-15] MEDS ORDERED: fentaNYL (PF) 50 MCG/ML 5 ML AMP ONE (08:33)
[2021-05-15] MEDS ORDERED: ZOLPIDEM 5 MG TAB PO PRN (19:30)
[2021-05-15] MEDS ORDERED: LANOLIN CREAM 5 GM TUBE TOPICAL PRN (19:30)
[2021-05-15] MEDS ORDERED: SIMETHICONE 80 MG CHEWABLE PO PRN (19:30)
[2021-05-15] MEDS ORDERED: diphenhydrAMINE 25 MG CAP PO PRN (19:30)
[2021-05-15] MEDS ORDERED: BENZOCAINE/MENTHOL SPRAY 1 GM/SPRAY AEROSOL TOPICAL PRN (19:30)
[2021-05-15] MEDS ORDERED: HYDROCORTISONE 2.5% RECTAL CREAM 30 GM TUBE RECTAL PRN (19:30)
[2021-05-15] MEDS ORDERED: diphenhydrAMINE 50 MG/ML 1 ML VIAL IVP PRN (19:30)
--- NOTE | 2021-05-15 19:51 | P.PROBDLV ---
Vaginal Delivery Note - . Vaginal Delivery Note: Normal vaginal delivery viable female Apgars 7 and 9 delivery time is 1844 hrs. Please see dictated H&P for intimate details of this patient's admission. In brief summary this is a pleasant 36-year-old 1 para 0 female estimated gestational age 39-2/7 weeks who presents to labor and delivery for elective induction of labor. On admission patient is 3 cm dilated has artificial rupture membranes for clear fluid. Labor is induced with Pitocin per protocol. Patient does progress and she gets an epidural for pain control. Patient does get to complete pushes for approximately 40 minutes. She pushes the head to the perineum. It is obvious at this point that she does have a constricted perineum therefore infiltrate with 1% lidocaine and a midline episiotomy is made. At this point with good maternal effort we then have deliver the 's head in a controlled fashion over the perineum. Mouth and nares are bulb suctioned. There is no evidence of a nuchal cord. 's position is straight occiput anterior. With gentle downward traction, we then have deliver the anterior shoulder and posterior shoulder and rest this 's body. This is a vigorous viable female Apgars are 7 and 9 delivery time is 1844 hrs. After deli very of the infant the is laid on the mother's abdomen. After the cord is done pulsating it is doubly clamped and cut. It appears to be trivascular. The placenta is then spontaneously delivered intact. At this time inspection of the perineum shows a fourth degree laceration. The rectal sphincter is completely disrupted and the rectal mucosa is disrupted for approximately 1.5 cm from the anal verge. There is also bilateral sulcus tears. At this time I placed a Gelpi into the field and excellent visualization is noted. I infiltrate the perineum with more 1% lidocaine. The anal sphincter shealth is isolated on both sides with Allis clamps. Using a 2 layer closure a 4-0 Vicryl I reapproximate the rectal mucosa. Then, using interrupted 3-0 Vicryl 4 I reapproximate the rectal sphincter. Excellent reapproximation is noted. This point I placed several sutures in the vaginal sulcus for hemostasis. Finally the rest of the laceration is repaired with 3-0 Vicryl in the usual fashion. Excellent reapproximation is noted. With hemostasis assured at this time a rectal exam is then done and there are no defects in the rectal sphincter appears to be well reapproximated. Final sponge and needle counts are correct 3. Quantitative blood loss is approximately 800 mL. Other than a fourth degree laceration there are no complications.
[2021-05-15] MEDS: IBUPROFEN 600 MG TAB PO PRN (20:05)
[2021-05-15] MEDS: SENNOSIDES-DOCUSATE SODIUM 1 EACH TAB PO SCH (20:05)
[2021-05-16] MEDS: ACETAMINOPHEN TAB 325 MG TAB PO PRN ×4 (00:32→22:45)
[2021-05-16] MEDS: IBUPROFEN 600 MG TAB PO PRN ×2 (03:19→19:27)
--- NOTE | 2021-05-16 06:16 | P.PNOBGVD ---
Subjective - Subjective Patient reports: Reports appetite normal, Reports voiding normally, Reports pain well controlled, Reports ambulating normally : doing well Objective - Latest Vital Signs Latest vital signs: Vital Signs Temp Pulse Resp BP Pulse Ox 05/16/21 04:00 98.4 F 113 H 16 122/65 97 05/16/21 00:00 106 H 16 125/68 96 05/15/21 21:30 105 H 16 150/74 05/15/21 21:00 121 H 16 154/76 05/15/21 20:54 97.9 F 97 16 129/61 05/15/21 20:30 97 16 129/61 05/15/21 20:15 116 H 16 145/76 05/15/21 20:00 108 H 16 150/83 05/15/21 19:45 122 H 16 156/85 05/15/21 19:30 97.9 F 127 H 16 158/83 Intake and Output 05/15/21 05/15/21 05/16/21 14:59 22:59 06:59 Output Total 1200 985 Balance -1200 -985 Output: Urine 1200 Output, Quantitative 985 Blood Loss Other: # Voids 1 Weight 93.44 kg - Exam Lungs: bilateral: normal Chest: Normal S1, Normal S2 Extremities: Present: normal Abdomen: Present: normal appearance, soft Uterus: Present: normal, firm - Labs Labs: Abnormal Lab Results - Last 24 Hours (Table) 05/15/21 Range/Units 06:12 WBC 11.4 H (3.8-10.6) k/uL RBC 3.58 L (3.80-5.40) m/uL Neutrophils # 8.9 H (1.3-7.7) k/uL Assessment and Plan Assessment: day #1. Patient is resting without new complaints. Vital signs are stable and she is afebrile. Uterus is firm nontender she's had normal lochia. My impression this is a normal course. I expect her hemoglobin to be low this morning due to the amount blood loss at the time of delivery however she is had no further significant bleeding. Plan is to begin some iron therapy, check a CBC, and continue routine care. (1) 39 weeks gestation of Current Visit: No Status: Acute Code(s): Z3A.39 - 39 WEEKS GESTATION OF SNOMED Code(s): 74987142 (2) Elderly primigravida Current Visit: No Status: Acute Code(s): O09.519 - SUPERVISION OF ELDERLY PRIMIGRAVIDA, UNSPECIFIED TRIMESTER SNOMED Code(s): 47345736 (3) Elective induction of labor planned Current Visit: No Status: Acute Code(s): TTF7616 - SNOMED Code(s): 853373941
[2021-05-16 08:28] LABS: Basophils % (A) 0 %; Eosinophils % (A) 0 %; HCT 25.7 % (34.0-46.0); Lymphocytes # (A) 1.4 k/uL (1.0-4.8); Lymphocytes % (A) 9 %; MCH 34.6 pg (25.0-35.0); MCHC 34.8 g/dL (31.0-37.0); MCV 99.4 fL (80.0-100.0); Mean Platelet Volume 8.4; Monocytes # (A) 1.1 k/uL (0-1.0); Monocytes % (A) 7 %; Neutrophils # (A) 13.4 k/uL (1.3-7.7); Neutrophils % (A) 83 %; Platelet Count 180 k/uL (150-450); RBC 2.58 m/uL (3.80-5.40); RDW 13.6 % (11.5-15.5); WBC 16.2 k/uL (3.8-10.6)
[2021-05-16 08:31] LABS: HGB 8.9 gm/dL (11.4-16.0)
[2021-05-16] MEDS: FERROUS SULFATE 325 MG TAB PO SCH (08:36)
[2021-05-16] MEDS: SENNOSIDES-DOCUSATE SODIUM 1 EACH TAB PO SCH ×2 (08:36→19:26)
--- NOTE | 2021-05-17 05:56 | P.PNOBGVD ---
Subjective - Subjective Patient reports: Reports appetite normal, Reports voiding normally, Reports pain well controlled, Reports ambulating normally : doing well Objective - Latest Vital Signs Latest vital signs: Vital Signs Temp Pulse Resp BP Pulse Ox 05/16/21 23:04 97.7 F 92 16 121/67 05/16/21 16:00 16 05/16/21 15:48 97.6 F 96 16 124/69 97 05/16/21 11:52 97.4 F L 85 17 112/68 96 05/16/21 08:36 97.4 F L 102 H 17 127/74 97 Intake and Output 05/16/21 05/16/21 05/17/21 14:59 22:59 06:59 Other: # Voids 2 2 3 - Exam Lungs: bilateral: normal Chest: Normal S1, Normal S2 Extremities: Present: normal Abdomen: Present: normal appearance, soft Uterus: Present: normal, firm - Labs Labs: Abnormal Lab Results - Last 24 Hours (Table) 05/16/21 Range/Units 07:40 WBC 16.2 H (3.8-10.6) k/uL RBC 2.58 L (3.80-5.40) m/uL Hgb 8.9 L D (11.4-16.0) gm/dL Hct 25.7 L (34.0-46.0) % Neutrophils # 13.4 H (1.3-7.7) k/uL Monocytes # 1.1 H (0-1.0) k/uL Assessment and Plan Assessment: day #2. Patient is resting without new complaints. Uterus is firm nontender she's having normal lochia. Patient's baby is having some jaundice issues and required some phototherapy. I impression this is a normal course. Plan is to continue routine care discharge home later today2 (1) 39 weeks gestation of Current Visit: No Status: Acute Code(s): Z3A.39 - 39 WEEKS GESTATION OF SNOMED Code(s): 97202832 (2) Elderly primigravida Current Visit: No Status: Acute Code(s): O09.519 - SUPERVISION OF ELDERLY PRIMIGRAVIDA, UNSPECIFIED TRIMESTER SNOMED Code(s): 16849133 (3) Elective induction of labor planned Current Visit: No Status: Acute Code(s): VPC9061 - SNOMED Code(s): 40 9149902
--- NOTE | 2021-05-17 06:03 | P.DS ---
Providers Date of admission: 05/15/21 05:40 Expected date of discharge: 05/17/21 Attending physician: Umer Ordoñez Primary care physician: Stated None - Discharge Diagnosis(es) (1) 39 weeks gestation of Current Visit: No Status: Acute (2) Elderly primigravida Current Visit: No Status: Acute (3) Elective induction of labor planned Current Visit: No Status: Acute Hospital Course: Please see dictated H&P for intimate details of this patient's admission. Brief summary this is a 36-year-old 1 para 0 female 39-2/7 weeks gestation admitted for duction labor probably in early labor Patient was on have a vaginal delivery viable female infant. Please see dictated delivery note. Delivery is complicated by fourth degree laceration which is repaired time of delivery and hemorrhage. This also resolves delivery. day #1 patient's hemoglobin was 8.9 and she is having normal lochia. 2 she continues to well was felt be stable for discharge home follow up with me in 6 weeks. Procedures: Normal vaginal delivery. Patient Condition at Discharge: Good Plan - Discharge Summary New Discharge Prescriptions: New Ferrous Sulfate [Iron (65 MG Elemental)] 325 mg PO DAILY #30 tab Ibuprofen [Motrin] 600 mg PO Q6HR PRN #40 tab PRN Reason: Pain Docusate [Colace] 100 mg PO DAILY #30 capsule No Action Fluticasone/Salmeterol [Advair 250-50 Diskus] 1 inhalation PO BID Pnv No.95/Ferrous Fum/Folic AC [ Multivitamin Tablet] 1 each PO DAILY Discharge Medication List Fluticasone/Salmeterol [Advair 250-50 Diskus] 1 inhalation PO BID 03/30/21 [History] Pnv No.95/Ferrous Fum/Folic AC [ Multivitamin Tablet] 1 each PO DAILY 03/30/21 [History] Docusate [Colace] 100 mg PO DAILY #30 capsule 05/17/21 [Rx] Ferrous Sulfate [Iron (65 MG Elemental)] 325 mg PO DAILY #30 tab 05/17/21 [Rx] Ibuprofen [Motrin] 600 mg PO Q6HR PRN #40 tab 05/17/21 [Rx] Follow up Appointment(s)/Referral(s): Umer Ordoñez MD [STAFF PHYSICIAN] - 06/26/21 2:15 pm Patient Instructions/Handouts: Vaginal Delivery (DC) Activity/Diet/Wound Care/Special Instructions: No intercourse or anything per vagina for 6 weeks. Please call if any fever, chills, excessive vaginal bleeding, and/or abdominal pain. Please take stool softener as directed an iron supplement as directed. Discharge Disposition: HOME SELF-CARE
[2021-05-17] MEDS: IBUPROFEN 600 MG TAB PO PRN (06:08)
[2021-05-17 07:33] VITALS: BP 127/70; PULSE 87; RESP 18; TEMP 97.9
[2021-05-17] MEDS: ACETAMINOPHEN TAB 325 MG TAB PO PRN (08:31)
[2021-05-17] MEDS: FERROUS SULFATE 325 MG TAB PO SCH (08:31)
[2021-05-17] MEDS: SENNOSIDES-DOCUSATE SODIUM 1 EACH TAB PO SCH (08:32)
== END 2021-05-17 15:30 | disposition home or self-care (01) | DRG 768 ==
LOC: 4FBP 05:40
PROVIDERS: ADMIT Obstetrics & Gynecology; ATTEND Obstetrics & Gynecology
PROC: 10E0XZZ Delivery of Products of Conception, External Approach (ICD-10-PCS; principal; 2021-05-15)
PROC: 0DQR0ZZ Repair Anal Sphincter, Open Approach (ICD-10-PCS; 2021-05-15)
PROC: 0KQM0ZZ Repair Perineum Muscle, Open Approach (ICD-10-PCS; 2021-05-15)
PROC: 0DQP0ZZ Repair Rectum, Open Approach (ICD-10-PCS; 2021-05-15)
PROC: 10907ZC Drainage of Amniotic Fluid, Therapeutic from Products of Conception, Via Natural or Artificial Opening (ICD-10-PCS; 2021-05-15)
PROC: 3E033VJ Introduction of Other Hormone into Peripheral Vein, Percutaneous Approach (ICD-10-PCS; 2021-05-15)
PROC: 0W8NXZZ Division of Female Perineum, External Approach (ICD-10-PCS; 2021-05-15)
DX: O70.3 Fourth degree perineal laceration during delivery (principal); Z37.0 Single live birth; O72.1 Other immediate postpartum hemorrhage; O99.52 Diseases of the respiratory system complicating childbirth; Z3A.39 39 weeks gestation of pregnancy; J45.909 Unspecified asthma, uncomplicated; O99.62 Diseases of the digestive system complicating childbirth; K21.9 Gastro-esophageal reflux disease without esophagitis; Z91.018 Allergy to other foods
CPT/HCPCS: 85025; 86850; 86900; 86901; 88307

== ENCOUNTER 2022-04-09 11:49 | Emergency (ER) | payer MEDICAID, BC ==
[2022-04-09 11:56] VITALS: TEMP 97.9
--- NOTE | 2022-04-09 12:30 | ED ---
General Adult HPI - General Chief complaint: Arrhythmia/Palpitations Stated complaint: heart palpitations Time Seen by Provider: 04/09/22 11:57 Source: patient, RN notes reviewed Mode of arrival: ambulatory Limitations: no limitations - History of Present Illness Initial comments: Patient is a pleasant 37-year-old female presenting to the emergency department concerns for palpitations. Onset of symptoms was around 3-4 days ago. Patient states symptoms are fairly consistent. Patient states sometimes she does feel a little bit short of breath when symptoms are worse or at rest. No leg pain or leg swelling. No chest pain. No history of similar symptoms previously. - Related Data Home Medications Medication Instructions Recorded Confirmed Fluticasone Propion/Salmeterol 1 inhalation PO BID 03/30/21 05/15/21 [Advair 250-50 Diskus] Pnv No.95/Ferrous Fum/Folic AC 1 each PO DAILY 03/30/21 05/15/21 [ Multivitamin Tablet] Previous Rx's Medication Instructions Recorded Docusate [Colace] 100 mg PO DAILY #30 capsule 05/17/21 Ferrous Sulfate [Iron (65 MG 325 mg PO DAILY #30 tab 05/17/21 Elemental)] Ibuprofen [Motrin] 600 mg PO Q6HR PRN #40 tab 05/17/21 atenoloL [Tenormin] 12.5 mg PO DAILY #10 each 04/09/22 Allergies Allergy/AdvReac Type Severity Reaction Status Date / Time gluten Allergy Nausea & Verified 04/09/22 11:56 Vomiting soy Allergy Unknown Verified 04/09/22 11:56 tree nut Allergy Anaphylaxis Verified 04/09/22 11:56 Review of Systems ROS Statement: Those systems with pertinent positive or pertinent negative responses have been documented in the HPI. ROS Other: All systems not noted in ROS Statement are negative. Constitutional: Denies: fever Eyes: Denies: eye pain ENT: Denies: ear pain Respiratory: Denies: cough Cardiovascular: Reports: as per HPI, palpitations. Denies: chest pain Endocrine: Denies: fatigue Gastrointestinal: Denies: abdominal pain Genitourinary: Denies: dysuria Musculoskeletal: Denies: back pain Skin: Denies: rash Neurological: Denies: weakness Past Medical History Past Medical History: Asthma, GERD/Reflux Additional Past Medical History / Comment(s): HEART MURMUR- resolved History of Any Multi-Drug Resistant Organisms: None Reported Past Surgical History: No Surgical Hx Reported Additional Past Surgical History / Comment(s): WISDOM TEETH ONLY. Past Anesthesia/Blood Transfusion Reactions: Motion Sickness Past Psychological History: No Psychological Hx Reported Smoking Status: Never smoker Past Alcohol Use History: None Reported Past Drug Use History: None Reported - Past Family History Mother Family Medical History: No Reported History General Exam Limitations: no limitations General appearance: alert, in no apparent distress Head exam: Present: normocephalic Eye exam: Present: normal appearance Neck exam: Present: normal inspection Respiratory exam: Present: normal lung sounds bilaterally Cardiovascular Exam: Present: regular rate, irregular rhythm, normal heart sounds Expanded Peripheral pulses: 2+: Radial (R), Radial (L), Dorsalis Pedis (R), Dorsalis Pedis (L) GI/Abdominal exam: Present: soft. Absent: tenderness Extremities exam: Present: normal inspection. Absent: pedal edema, calf tenderness Neurological exam: Present: alert Psychiatric exam: Present: normal affect, normal mood Skin exam: Present: normal color Course Vital Signs 04/09/22 04/09/22 11:55 12:33 Temperature 97.9 F Pulse Rate 77 Pulse Rate [ 65 D[employer] Chain Pegger ] Respiratory 16 Rate Blood Pressure 119/79 O2 Sat by Pulse 99 Oximetry EKG Findings - EKG Results: EKG: interpreted by ERMD, sinus rhythm (Sinus arrhythmia), normal axis, normal QRS, normal ST/T Medical Decision Making - Medical Decision Making Was pt. sent in by a medical professional or institution (, PA, [employer]MOND CUTTING MACHINE TENDER, urgent care, hospital, or prison...) When possible be specific @ -No Did you speak to anyone other than the patient for history (EMS, parent, family, police, friend...)? What history was obtained from this source @ -No Did you review nursing and triage notes (agree or disagree)? Why? @ -I reviewed and agree with nursing and triage notes Were old charts reviewed (outside hosp., previous admission, EMS record, old EKG, old radiological studies, urgent care reports/EKG's, prison records)? Report findings @ -No old charts were reviewed Differential Diagnosis (chest pain, altered mental status, abdominal pain women, abdominal pain men, vaginal bleeding, weakness, fever, dyspnea, syncope, headache, dizziness, GI bleed, back pain, seizure, CVA, palpatations, mental health)? @ -Differential Chest Pain: Stable Angina, Unstable Angina, STEMI, NSTEMI Aortic Dissection, Pneumothorax, Musculoskeletal, Esophageal Spasm GERD, Cholecystitis, Pancreatitis, Zoster, th is is not meant to be an all-inclusive list. EKG interpreted by me (3pts min.). @ -As above X-rays interpreted by me (1pt min.). @ -Chest x-ray shows no acute process, interpreted by myself CT interpreted by me (1pt min.). @ -None done U/S interpreted by me (1pt. min.). @ -None done What testing was considered but not performed or refused? (CT, X-rays, U/S, labs)? Why? @ -None What meds were considered but not given or refused? Why? @ -None Did you discuss the management of the patient with other professionals (professionals i.e. , PA, [employer]D CUTTING MACHINE TENDER, lab, RT, psych nurse, social media campaign manager, dry molder, teacher, community reinvestment act officer, director of casework services)? Give summary @ -No Was smoking cessation discussed for >3mins.? @ -No Was critical care preformed (if so, how long)? @ -No Were there social determinants of health that impacted care today? How? (Homelessness, low income, unemployed, alcoholism, drug addiction, transportation, low edu. Level, literacy, decrease access to med. care, care home, rehab)? @ -No Was there de-escalation of care discussed even if they declined (Discuss DNR or withdrawal of care, Hospice)? DNR status @ -No What co-morbidities impacted this encounter? (DM, HTN, Smoking, COPD, CAD, Cancer, CVA, ARF, Chemo, Hep., AIDS, mental health diagnosis, sleep apnea, morbid obesity)? @ -None Was patient admitted / discharged? Hospital course, mention meds given and route, prescriptions, significant lab abnormalities, going to OR and other pertinent info. @ -Patient reevaluated and resting comfortably in bed. Patient remains in sinus rhythm, normal rate. Patient updated on results and need for follow-up. Patient aware of prescription and need for follow-up with considered Holter monitoring, echo, or other. Undiagnosed new problem with uncertain prognosis? @ -Undiagnosed new problem with uncertain prognosis Drug Therapy requiring intensive monitoring for toxicity (Heparin, Nitro, Insulin, Cardizem)? @ -No Were any procedures done? @ -No Diagnosis/symptom? @ -Palpitations Acute, or Chronic, or Acute on Chronic? @ -Acute Uncomplicated (without systemic symptoms) or Complicated (systemic symptoms)? @ -Uncomplicated Side effects of treatment? @ -No Exacerbation, Progression, or Severe Exacerbation? @ -No Poses a threat to life or bodily function? How? (Chest pain, [place], [place], pneumonia, PE, COPD, DKA, ARF, appy, cholecystitis, CVA, Diverticulitis, Homicidal, Suicidal, threat to staff... and all critical care pts) @ -No - Lab Data Result diagrams: 04/09/22 12:32 04/09/22 12:32 Lab Results 04/09/22 04/09/22 04/09/22 Range/Units 12:32 12:32 12:32 WBC 6.8 (3.8-10.6) k/uL RBC 4.62 (3.80-5.40) m/uL Hgb 14.6 (11.4-16.0) gm/dL Hct 42.1 (34.0-46.0) % MCV 91.0 (80.0-100.0) fL MCH 31.7 (25.0-35.0) pg MCHC 34.8 (31.0-37.0) g/dL RDW 12.5 (11.5-15.5) % Plt Count 249 (150-450) k/uL MPV 7.9 Neutrophils % 63 % Lymphocytes % 25 % Monocytes % 5 % Eosinophils % 5 % Basophils % 1 % Neutrophils # 4.3 (1.3-7.7) k/uL Lymphocytes # 1.7 (1.0-4.8) k/uL Monocytes # 0.4 (0-1.0) k/uL Eosinophils # 0.3 (0-0.7) k/uL Basophils # 0.0 (0-0.2) k/uL PT 10.2 (9.0-12.0) sec INR 1.0 (<1.2) APTT 23.1 (22.0-30.0) sec D-Dimer <0.17 (<0.60) mg/L FEU Sodium 138 (137-145) mmol/L Potassium 4.8 (3.5-5.1) mmol/L Chloride 103 (98-107) mmol/L Carbon Dioxide 30 (22-30) mmol/L Anion Gap 5 mmol/L BUN 11 (7-17) mg/dL Creatinine 0.83 (0.52-1.04) mg/dL Est GFR (CKD-EPI)AfAm >90 (>60 ml/min/1.73 sqM) Est GFR (CKD-EPI)NonAf >90 (>60 ml/min/1.73 sqM) Glucose 91 (74-99) mg/dL Calcium 9.4 (8.4-10.2) mg/dL Magnesium 2.2 (1.6-2.3) mg/dL Total Bilirubin 0.7 (0.2-1.3) mg/dL AST 26 (14-36) U/L ALT 33 (4-34) U/L Alkaline Phosphatase 87 (38-126) U/L Troponin I (0.000-0.034) ng/mL NT-Pro-B Natriuret Pep pg/mL Total Protein 8.0 (6.3-8.2) g/dL Albumin 4.8 (3.5-5.0) g/dL TSH 0.865 (0.465-4.680) mIU/L Free T4 1.09 (0.78-2.19) ng/dL Free T3 pg/mL 3.7 (2.8-5.3) pg/ml 04/09/22 04/09/22 Range/Units 12:32 12:32 WBC (3.8-10.6) k/uL RBC (3.80-5.40) m/uL Hgb (11.4-16.0) gm/dL Hct (34.0-46.0) % MCV (80.0-100.0) fL MCH (25.0-35.0) pg MCHC (31.0-37.0) g/dL RDW (11.5-15.5) % Plt Count (150-450) k/uL MPV Neutrophils % % Lymphocytes % % Monocytes % % Eosinophils % % Basophils % % Neutrophils # (1.3-7.7) k/uL Lymphocytes # (1.0-4.8) k/uL Monocytes # (0-1.0) k/uL Eosinophils # (0-0.7) k/uL Basophils # (0-0.2) k/uL PT (9.0-12.0) sec INR (<1.2) APTT (22.0-30.0) sec D-Dimer (<0.60) mg/L FEU Sodium (137-145) mmol/L Potassium (3.5-5.1) mmol/L Chloride (98-107) mmol/L Carbon Dioxide (22-30) mmol/L Anion Gap mmol/L BUN (7-17) mg/dL Creatinine (0.52-1.04) mg/dL Est GFR (CKD-EPI)AfAm (>60 ml/min/1.73 sqM) Est GFR (CKD-EPI)NonAf (>60 ml/min/1.73 sqM) Glucose (74-99) mg/dL Calcium (8.4-10.2) mg/dL Magnesium (1.6-2.3) mg/dL Total Bilirubin (0.2-1.3) mg/dL AST (14-36) U/L ALT (4-34) U/L Alkaline Phosphatase (38-126) U/L Troponin I <0.012 (0.000-0.034) ng/mL NT-Pro-B Natriuret Pep 22 pg/mL Total Protein (6.3-8.2) g/dL Albumin (3.5-5.0) g/dL TSH (0.465-4.680) mIU/L Free T4 (0.78-2.19) ng/dL Free T3 pg/mL (2.8-5.3) pg/ml Disposition Clinical Impression: Palpitations Disposition: HOME SELF-CARE Condition: Stable Instructions (If sedation given, give patient instructions): Heart Palpitations (ED) Additional Instructions: Please do follow-up with your primary care physician in the next couple days for recheck. Consider echo. Consider Holter monitor. Return for increased heart rate, worsening or change in symptoms, or any other concerns. Prescription has been sent to pharmacy. Prescriptions: atenoloL [Tenormin] 12.5 mg PO DAILY #10 each Is patient prescribed a controlled substance at d/c from ED?: No Referrals: Indra Apple MD [Primary Care Provider] - 1-2 days Time of Disposition: 14:35
[2022-04-09] MEDS ORDERED: LORazepam 2 MG/ML INJ IV STA (12:36)
[2022-04-09 12:40] LABS: Basophils % (A) 1 %; Eosinophils # (A) 0.3 k/uL (0-0.7); Eosinophils % (A) 5 %; HCT 42.1 % (34.0-46.0); HGB 14.6 gm/dL (11.4-16.0); Lymphocytes # (A) 1.7 k/uL (1.0-4.8); Lymphocytes % (A) 25 %; MCH 31.7 pg (25.0-35.0); MCHC 34.8 g/dL (31.0-37.0); Mean Platelet Volume 7.9; Monocytes # (A) 0.4 k/uL (0-1.0); Monocytes % (A) 5 %; Neutrophils # (A) 4.3 k/uL (1.3-7.7); Neutrophils % (A) 63 %; Platelet Count 249 k/uL (150-450); RBC 4.62 m/uL (3.80-5.40); RDW 12.5 % (11.5-15.5); WBC 6.8 k/uL (3.8-10.6)
[2022-04-09 12:53] LABS: ALT 33 U/L (4-34); AST 26 U/L (14-36); African American GFR (CKD) >90 (>60 ml/min/1.73 sqM); Albumin 4.8 g/dL (3.5-5.0); Alkaline Phosphatase 87 U/L (38-126); Anion Gap 5 mmol/L; Blood Urea Nitrogen 11 mg/dL (7-17); Calcium 9.4 mg/dL (8.4-10.2); Carbon Dioxide 30 mmol/L (22-30); Chloride 103 mmol/L (98-107); Glucose 91 mg/dL (74-99); Magnesium 2.2 mg/dL (1.6-2.3); Non-African American GFR(CKD) >90 (>60 ml/min/1.73 sqM); Partial Thromboplastin Time 23.1 sec (22.0-30.0); Potassium 4.8 mmol/L (3.5-5.1); Prothrombin Time 10.2 sec (9.0-12.0); Sodium 138 mmol/L (137-145); Total Bilirubin 0.7 mg/dL (0.2-1.3)
[2022-04-09 13:09] LABS: T4, Free (Free Thyroxine) 1.09 ng/dL (0.78-2.19)
--- NOTE | 2022-04-09 13:24 | XR ---
EXAMINATION TYPE: XR chest 2V DATE OF EXAM: 04/09/2022 COMPARISON: NONE TECHNIQUE: PA and lateral views submitted. HISTORY: This pressure FINDINGS: The lungs are clear and there is no pneumothorax, pleural effusion, or focal pneumonia. Heart size normal and no overt failure. Osseous structures demonstrate hypertrophic and degenerative changes of the spine. Hyperinflation. Mild hypertrophic changes of the spine. IMPRESSION: 1. No acute process.
[2022-04-09 14:51] VITALS: BP 118/68; PULSE 84; RESP 18
== END 2022-04-09 14:51 | disposition home or self-care (01) ==
LOC: EC 11:49
DX: R00.2 Palpitations (principal); J45.909 Unspecified asthma, uncomplicated; Z88.8 Allergy status to other drugs, medicaments and biological substances; Z91.018 Allergy to other foods
CPT/HCPCS: 36415; 93005; 85379; 84439; 84481; 83880; 80053; 83735; 84443; 84484; 85025; 85610; 85730; 71046; 99285; 96374; J2060